=== PATIENT | female | born 1940 | race Caucasian/White ===

== ENCOUNTER 2023-06-23 14:27 | Outpatient (CLI) | payer MEDICARE | END 2023-06-23 14:28 | disposition home or self-care (01) | LOC: CSHRAD 14:27 | PROVIDERS: ATTEND Family Medicine | DX: J18.9 Pneumonia, unspecified organism (principal) | CPT/HCPCS: 71046 ==

== ENCOUNTER 2023-07-31 18:31 | Inpatient (IN) | payer MEDICARE ==
[~2023-07-31 18:31] MED LIST: Iopamidol 370 76% 100 ML VIAL ONE
[2023-07-31 19:26] LABS: Hematocrit 32.9 % (34.9-44.5); Hemoglobin 11.3 g/dL (12.0-15.5); MDiff Complete? YES; Mean Corpuscular HGB CONC 34.3 g/dL (32.0-36.0); Mean Corpuscular Hemoglobin 29.9 pg (27.0-33.0); Platelet Count 248 10x3/uL (150-450); RBC Distribution Width 13.9 % (11.5-14.5); Red Blood Cell (RBC) Count 3.78 10x6/uL (3.90-5.03); White Blood Cell (WBC) Count 5.8 10x3/uL (3.5-10.5)
[2023-07-31 19:37] LABS: ALT (SGPT) 29 U/L (8-55); AST (SGOT) 34 U/L (5-34); Albumin 4.2 g/dL (3.4-4.8); Alkaline Phosphatase 65 U/L (40-110); Anion Gap 15 mmol/L (10-20); BUN (Urea Nitrogen) 24 mg/dL (9.8-20.1); Bilirubin, Total 0.4 mg/dL (0.2-1.2); Calc. Creatinine Clearance 0 mL/min (70-130); Calcium 8.6 mg/dL (7.8-10.44); Carbon Dioxide 28 mmol/L (23-31); Chloride 92 mmol/L (98-107); Estimated GFR 50; Globulin 2.4 g/dL (2.4-3.5); Glucose 111 mg/dL (83-110); Potassium 3.7 mmol/L (3.5-5.1); Protein, Total 6.6 g/dL (5.8-8.1); Sodium 131 mmol/L (136-145)
[2023-07-31 19:44] LABS: Troponin I 0.011 ng/mL (< 0.028)
[2023-07-31 19:52] LABS: Band 6 % (5-11); Lymphocytes 16 % (21-51); Monocytes 7 % (0-10); Neutrophil 70 % (42-75); Reactive Lymphocytes 1 % (0-10)
[2023-07-31 19:54] LABS: Magnesium 1.7 mg/dL (1.6-2.6)
[2023-07-31 19:57] LABS: Burr Cells SLIGHT = 2-5 cells (100X) (0-1/hpf); Microcytosis SLIGHT = 6-15 cells (100X) (0-5/hpf); Ovalocytes SLIGHT = 2-5 cells (100X) (0-1/hpf)
[2023-07-31 19:59] LABS: Anisocytosis SLIGHT = 6-15 cells (100X) (0-5/hpf); Poikilocytosis SLIGHT = 6-15 cells (100X) (0-5/hpf)
[2023-07-31 20:01] LABS: Platelet Adequacy Comment Appears Adequate
[2023-07-31 22:01] LABS: SARS-CoV-2 NAA Rapid Test Not Detected (NotDetected)
[2023-07-31] MEDS ORDERED: Ondansetron PF 4 MG/2 ML Vial IVP PRN (22:16)
[2023-07-31] MEDS ORDERED: Ipratropium/Albuterol 3 ML NEB NEB PRN (22:16)
[2023-07-31] MEDS ORDERED: Ondansetron ODT 4 MG TAB PO PRN (22:16)
[2023-07-31] MEDS ORDERED: Acetaminophen 650 MG Suppository PR PRN (22:16)
[2023-07-31] MEDS ORDERED: predniSONE 20 MG TAB PO SCH (23:45)
[2023-08-01] VITALS: BMI 17.1
[2023-08-01] MEDS: Ipratropium/Albuterol 3 ML NEB NEB SCH ×5 (03:57→23:40)
[2023-08-01 04:05] LABS: Hematocrit 33.7 % (34.9-44.5); Hemoglobin 11.6 g/dL (12.0-15.5); Mean Corpuscular HGB CONC 34.4 g/dL (32.0-36.0); Mean Corpuscular Hemoglobin 30.1 pg (27.0-33.0); Mean Corpuscular Volume 87.3 fl (81.6-98.3); Platelet Count 257 10x3/uL (150-450); Red Blood Cell (RBC) Count 3.86 10x6/uL (3.90-5.03); White Blood Cell (WBC) Count 6.3 10x3/uL (3.5-10.5)
[2023-08-01 04:06] LABS: MDiff Complete? YES
[2023-08-01 04:14] LABS: Anion Gap 13 mmol/L (10-20); BUN (Urea Nitrogen) 20 mg/dL (9.8-20.1); Calc. Creatinine Clearance 31 mL/min (70-130); Calcium 8.4 mg/dL (7.8-10.44); Carbon Dioxide 27 mmol/L (23-31); Chloride 95 mmol/L (98-107); Estimated GFR 53; Glucose 110 mg/dL (83-110); Potassium 3.5 mmol/L (3.5-5.1); Sodium 131 mmol/L (136-145)
[2023-08-01 05:02] LABS: Band 2 % (5-11); Lymphocytes 11 % (21-51); Monocytes 5 % (0-10); Neutrophil 81 % (42-75); Reactive Lymphocytes 1 % (0-10)
[2023-08-01 05:06] LABS: Large Platelets SLIGHT (None Seen); Macrocytosis SLIGHT = 6-15 cells (100X) (0-5/hpf); Ovalocytes SLIGHT = 2-5 cells (100X) (0-1/hpf); Platelet Adequacy Comment Appears Adequate
[2023-08-01] MEDS ORDERED: Mometasone/Formoterol 200/5 60 PUFF INH SCH (06:30)
[2023-08-01] MEDS: Oseltamivir 75 MG CAP PO SCH ×2 (08:52→23:14)
[2023-08-01] MEDS: Enoxaparin 30 MG (0.3 mL) SYRINGE SC SCH (08:52)
[2023-08-01] MEDS: predniSONE 20 MG TAB PO SCH (08:53)
[2023-08-01] MEDS ORDERED: Losartan 50 MG TAB PO SCH (14:00)
[2023-08-01] MEDS ORDERED: Bumetanide 1 MG TAB PO SCH (14:00)
[2023-08-01] MEDS: Folic Acid 1 MG TAB PO SCH (16:04)
[2023-08-01] MEDS: Mometasone/Formoterol 60 PUFF AER INH SCH (19:10)
[2023-08-01] MEDS: Atorvastatin Calcium 10 MG TAB PO SCH (23:13)
[2023-08-01] MEDS: Famotidine 20 MG TAB PO SCH (23:13)
[2023-08-02 03:49] LABS: Anion Gap 15 mmol/L (10-20); BUN (Urea Nitrogen) 19 mg/dL (9.8-20.1); Calc. Creatinine Clearance 33 mL/min (70-130); Calcium 8.4 mg/dL (7.8-10.44); Carbon Dioxide 27 mmol/L (23-31); Chloride 96 mmol/L (98-107); Estimated GFR 57; Glucose 117 mg/dL (83-110); Potassium 3.3 mmol/L (3.5-5.1); Sodium 135 mmol/L (136-145)
[2023-08-02] MEDS: Ipratropium/Albuterol 3 ML NEB NEB SCH ×3 (07:15→19:25)
[2023-08-02] MEDS: Enoxaparin 30 MG (0.3 mL) SYRINGE SC SCH (08:16)
[2023-08-02] MEDS: Losartan 50 MG TAB PO SCH (08:17)
[2023-08-02] MEDS: Folic Acid 1 MG TAB PO SCH (08:17)
[2023-08-02] MEDS: Bumetanide 1 MG TAB PO SCH (08:17)
[2023-08-02] MEDS: predniSONE 20 MG TAB PO SCH (08:18)
[2023-08-02] MEDS: Oseltamivir 75 MG CAP PO SCH ×2 (08:18→23:10)
[2023-08-02] MEDS ORDERED: Potassium Chloride 20 MEQ TAB PO SCH (09:00)
[2023-08-02] MEDS ORDERED: Calcitriol 0.25 MCG CAP PO SCH (09:00)
[2023-08-02] MEDS: Mometasone/Formoterol 60 PUFF AER INH SCH ×2 (12:41→19:25)
[2023-08-02] MEDS: Polyethylene Glycol 3350 17 GM Packet PO PRN (14:31)
[2023-08-02] MEDS: Acetaminophen 325 MG TAB PO PRN (14:31)
[2023-08-02] MEDS: Ampicillin/Sulbactam 3 GM in Sodium Chloride 0.9% 100 ML IVPB SCH ×2 (18:03→23:22)
[2023-08-02] MEDS: Famotidine 20 MG TAB PO SCH (23:10)
[2023-08-02] MEDS: Atorvastatin Calcium 10 MG TAB PO SCH (23:10)
[2023-08-03] MEDS: Ipratropium/Albuterol 3 ML NEB NEB SCH ×4 (01:10→18:57)
[2023-08-03] MEDS: Ampicillin/Sulbactam 3 GM in Sodium Chloride 0.9% 100 ML IVPB SCH ×3 (06:30→18:08)
[2023-08-03] MEDS: Mometasone/Formoterol 60 PUFF AER INH SCH ×2 (06:35→19:01)
[2023-08-03] MEDS: Enoxaparin 30 MG (0.3 mL) SYRINGE SC SCH (09:39)
[2023-08-03] MEDS: Polyethylene Glycol 3350 17 GM Packet PO PRN (09:39)
[2023-08-03] MEDS: Oseltamivir 75 MG CAP PO SCH (09:40)
[2023-08-03] MEDS: predniSONE 20 MG TAB PO SCH (09:41)
[2023-08-03] MEDS: Folic Acid 1 MG TAB PO SCH (09:42)
[2023-08-03] MEDS: Bumetanide 1 MG TAB PO SCH (09:42)
[2023-08-03] MEDS: Losartan 50 MG TAB PO SCH (09:42)
[2023-08-03] MEDS: Acetaminophen 325 MG TAB PO PRN (09:43)
[2023-08-04] MEDS: Famotidine 20 MG TAB PO SCH ×2 (00:02→20:50)
[2023-08-04] MEDS: Oseltamivir 75 MG CAP PO SCH ×3 (00:02→20:50)
[2023-08-04] MEDS: Ampicillin/Sulbactam 3 GM in Sodium Chloride 0.9% 100 ML IVPB SCH ×4 (00:02→17:32)
[2023-08-04] MEDS: Atorvastatin Calcium 10 MG TAB PO SCH ×2 (00:03→20:50)
[2023-08-04] MEDS: Ipratropium/Albuterol 3 ML NEB NEB SCH ×4 (01:24→19:35)
[2023-08-04 05:16] LABS: #Monocytes 0.8 10x3/uL (0.0-1.1); #Neutrophils 9.7 10x3/uL (1.5-8.4); %Basophils 0.1 % (0.0-2.0); %Lymphocytes 6.5 % (18.0-47.0); %Monocytes 6.7 % (0.0-10.0); %Neutrophils 86.2 % (40.0-75.0); Hematocrit 31.7 % (34.9-44.5); Hemoglobin 10.8 g/dL (12.0-15.5); Mean Corpuscular HGB CONC 34.1 g/dL (32.0-36.0); Mean Corpuscular Hemoglobin 30.1 pg (27.0-33.0); Mean Corpuscular Volume 88.3 fl (81.6-98.3); Mean Platelet Volume 8.7 fl (7.4-10.4); Platelet Count 336 10x3/uL (150-450); Red Blood Cell (RBC) Count 3.59 10x6/uL (3.90-5.03); White Blood Cell (WBC) Count 11.3 10x3/uL (3.5-10.5)
[2023-08-04 05:22] LABS: Anion Gap 12 mmol/L (10-20); BUN (Urea Nitrogen) 15 mg/dL (9.8-20.1); Calc. Creatinine Clearance 37 mL/min (70-130); Calcium 8.4 mg/dL (7.8-10.44); Carbon Dioxide 29 mmol/L (23-31); Chloride 98 mmol/L (98-107); Estimated GFR 65; Glucose 117 mg/dL (83-110); Sodium 136 mmol/L (136-145)
[2023-08-04] MEDS: Mometasone/Formoterol 60 PUFF AER INH SCH ×2 (07:30→19:35)
[2023-08-04] MEDS: Enoxaparin 30 MG (0.3 mL) SYRINGE SC SCH (08:22)
[2023-08-04] MEDS: Losartan 50 MG TAB PO SCH (08:23)
[2023-08-04] MEDS: predniSONE 20 MG TAB PO SCH (08:24)
[2023-08-04] MEDS: Folic Acid 1 MG TAB PO SCH (08:24)
[2023-08-04] MEDS: Bumetanide 1 MG TAB PO SCH (08:25)
[2023-08-04] MEDS ORDERED: Potassium Chloride 20 MEQ TAB PO SCH ×2 (13:30→21:00)
[2023-08-04] MEDS ORDERED: Magnesium Sulfate/D5W 1 GM in Premix 1 BAG IVPB SCH (15:30)
[2023-08-04] MEDS: Apixaban 2.5 MG TAB PO SCH (20:50)
[2023-08-05] MEDS: Ampicillin/Sulbactam 3 GM in Sodium Chloride 0.9% 100 ML IVPB SCH ×3 (00:16→11:47)
[2023-08-05] MEDS: Ipratropium/Albuterol 3 ML NEB NEB SCH ×3 (01:30→13:30)
[2023-08-05 05:03] LABS: #Monocytes 0.9 10x3/uL (0.0-1.1); %Basophils 0.2 % (0.0-2.0); %Eosinophils 0.1 % (0.0-6.0); %Lymphocytes 9.8 % (18.0-47.0); %Monocytes 7.8 % (0.0-10.0); %Neutrophils 81.6 % (40.0-75.0); Hematocrit 30.7 % (34.9-44.5); Hemoglobin 10.5 g/dL (12.0-15.5); Mean Corpuscular HGB CONC 34.2 g/dL (32.0-36.0); Mean Corpuscular Hemoglobin 29.8 pg (27.0-33.0); Mean Corpuscular Volume 87.2 fl (81.6-98.3); Mean Platelet Volume 8.5 fl (7.4-10.4); Platelet Count 355 10x3/uL (150-450); RBC Distribution Width 14.1 % (11.5-14.5); Red Blood Cell (RBC) Count 3.52 10x6/uL (3.90-5.03)
[2023-08-05 05:15] LABS: Anion Gap 11 mmol/L (10-20); BUN (Urea Nitrogen) 15 mg/dL (9.8-20.1); Calc. Creatinine Clearance 37 mL/min (70-130); Calcium 8.4 mg/dL (7.8-10.44); Carbon Dioxide 27 mmol/L (23-31); Chloride 100 mmol/L (98-107); Estimated GFR 65; Glucose 114 mg/dL (83-110); Magnesium 2.2 mg/dL (1.6-2.6); Potassium 4.1 mmol/L (3.5-5.1); Sodium 134 mmol/L (136-145)
[2023-08-05] MEDS: Mometasone/Formoterol 60 PUFF AER INH SCH (07:05)
[2023-08-05] MEDS ORDERED: Potassium Chloride 20 MEQ TAB PO SCH (08:00)
[2023-08-05] MEDS: Folic Acid 1 MG TAB PO SCH (08:50)
[2023-08-05] MEDS: Bumetanide 1 MG TAB PO SCH (08:50)
[2023-08-05] MEDS: Losartan 50 MG TAB PO SCH (08:50)
[2023-08-05] MEDS: Apixaban 2.5 MG TAB PO SCH (08:50)
[2023-08-05] MEDS: Oseltamivir 75 MG CAP PO SCH ×2 (08:50→15:18)
[2023-08-05 12:32] VITALS: TEMP 98.4
[2023-08-05 15:14] VITALS: BP 139/97
== END 2023-08-05 15:50 | disposition home or self-care (01) | DRG 178 ==
LOC: SUATTDRO 18:31 → CSHERS 18:31 → CSHTELE 22:01 → OBSVTOIN 22:01 → CSHTELE 23:33
PROVIDERS: ADMIT Family Medicine; ATTEND Internal Medicine
DX: J69.0 Pneumonitis due to inhalation of food and vomit (principal); E87.1 Hypo-osmolality and hyponatremia; J45.901 Unspecified asthma with (acute) exacerbation; J10.1 Influenza due to other identified influenza virus with other respiratory manifestations; H40.9 Unspecified glaucoma; E03.9 Hypothyroidism, unspecified; I10 Essential (primary) hypertension; Z11.52 Encounter for screening for COVID-19; Z79.899 Other long term (current) drug therapy; E87.6 Hypokalemia; I48.91 Unspecified atrial fibrillation; E78.5 Hyperlipidemia, unspecified; K21.9 Gastro-esophageal reflux disease without esophagitis; Z79.01 Long term (current) use of anticoagulants; K59.09 Other constipation; E83.42 Hypomagnesemia
CPT/HCPCS: 36415; 71045; 71275; 74230; 80048; 80053; 83735; 83880; 84484; 85025; 85379; 93005; 93010; 93306; 94640; 94760; 94762; J0295; J1650; J3475; J3490; J7512; J7620; Q9967

== ENCOUNTER 2023-08-10 16:05 | Outpatient (CLI) | payer MEDICARE, BC | END 2023-08-10 16:06 | disposition home or self-care (01) | LOC: CSHRAD 16:05 | PROVIDERS: ATTEND Family Medicine | DX: J18.9 Pneumonia, unspecified organism (principal) | CPT/HCPCS: 71046 ==

== ENCOUNTER 2023-10-30 14:05 | Outpatient (CLI) | payer MEDICARE, BC | END 2023-10-30 14:06 | disposition home or self-care (01) | LOC: CSHCP 14:05 | PROVIDERS: ATTEND Internal Medicine | DX: J44.89 Other specified chronic obstructive pulmonary disease (principal); J45.30 Mild persistent asthma, uncomplicated | CPT/HCPCS: 94060; 94664; 94726; 94729; 94760 ==

== ENCOUNTER → 2025-02-10 | Day surgery (SDC) | payer MEDICARE | LOC: CSHULT 12:35 | PROVIDERS: ATTEND Family Medicine | PROC: 0HBT3ZX Excision of Right Breast, Percutaneous Approach, Diagnostic (ICD-10-PCS; principal; 2025-02-10) | DX: C50.811 Malignant neoplasm of overlapping sites of right female breast (principal); C50.411 Malignant neoplasm of upper-outer quadrant of right female breast | CPT/HCPCS: 19083; 19084; A4648 ×2; 88305; 88341; 88342 ==

== ENCOUNTER 2025-03-20 10:36 | Outpatient (CLI) | payer MEDICARE | END 2025-03-20 10:37 | disposition home or self-care (01) | LOC: CSHMAMMO 10:36 | PROVIDERS: ATTEND Specialist | DX: C50.911 Malignant neoplasm of unspecified site of right female breast (principal) | CPT/HCPCS: 96372; A9697 ==

== ENCOUNTER 2025-03-20 11:17 | Outpatient (CLI) | payer MEDICARE ==
[2025-03-20 12:24] LABS: #Basophils 0.03 10x3/uL (0.0-0.2); #Eosinophils 0.14 10x3/uL (0.0-0.5); #Monocytes 0.64 10x3/uL (0.0-1.1); #Neutrophils 4.59 10x3/uL (1.5-8.4); %Basophils 0.5 % (0.0-2.0); %Eosinophils 2.2 % (0.0-6.0); %Lymphocytes 14.1 % (18.0-47.0); %Monocytes 10.2 % (0.0-10.0); %Neutrophils 72.8 % (40.0-75.0); Hematocrit 35.0 % (34.9-44.5); Hemoglobin 11.5 g/dL (12.0-15.5); Mean Corpuscular Hemoglobin 31.0 pg (27.0-33.0); Mean Corpuscular Volume 94.3 fL (81.6-98.3); Platelet Count 290 10x3/uL (150-450); Red Blood Cell (RBC) Count 3.71 10x6/uL (3.90-5.03); White Blood Cell (WBC) Count 6.30 10x3/uL (3.5-10.5)
[2025-03-20 12:39] LABS: Anion Gap 10 mmol/L (10-20); BUN (Urea Nitrogen) 20 mg/dL (9.8-20.1); Calc. Creatinine Clearance 0 mL/min (70-130); Calcium 9.5 mg/dL (7.8-10.44); Carbon Dioxide 32 mmol/L (23-31); Chloride 95 mmol/L (98-107); Glucose 110 mg/dL (83-110); Potassium 3.8 mmol/L (3.5-5.1); Sodium 133 mmol/L (136-145)
== END 2025-03-20 11:18 | disposition home or self-care (01) ==
LOC: CSHLAB 11:17
PROVIDERS: ATTEND Surgery
DX: Z01.818 Encounter for other preprocedural examination (principal); C50.911 Malignant neoplasm of unspecified site of right female breast
CPT/HCPCS: 71046; 80048; 85025

== ENCOUNTER → 2025-03-28 | Day surgery (SDC) | payer MEDICARE ==
[2025-03-20 11:49] VITALS: BMI 18.6
[~2025-03-28] MED LIST changes: +Acetaminophen 500 MG TAB ONE; +Bupivacaine/Epinephrine 0.25% 30 ML VIAL ONE; +CEFAZOLIN 2 GM VIAL ONE; +Famotidine/PF 20 mg/2ml Vial ONE; +HYDROmorphone 0.5 MG/0.5 ML SYRINGE ONE; -Iopamidol 370 76% 100 ML VIAL ONE; +Ketorolac Tromethamine 30 MG (1 mL) VIAL ONE; +Lidocaine 1% PF 5 ML VIAL ONE; +Lidocaine 2% MPF 10 ML AMP (For Epidural Use) ONE; +Ondansetron PF 4 MG/2 ML Vial ONE; +PROPOFOL 40 ML ONE; +Phenylephrine 40 MG/NS 250 ML 250 ML ONE; +Rocuronium Bromide 10 MG/ML (10ML VIAL) ONE; +SUGAMMADEX SODIUM 200 MG/2 ML VIAL ONE; +hydrALAZINE 20 MG/ML VIAL ONE; +oxyCODONE 5 MG TAB ONE
== END ==
LOC: CSHSDC 12:23
PROVIDERS: ATTEND Specialist
PROC: 0HTT0ZZ Resection of Right Breast, Open Approach (ICD-10-PCS; principal; 2025-03-28)
PROC: 07B50ZZ Excision of Right Axillary Lymphatic, Open Approach (ICD-10-PCS; 2025-03-28)
PROC: 0HX5XZZ Transfer Chest Skin, External Approach (ICD-10-PCS; 2025-03-28)
DX: C50.811 Malignant neoplasm of overlapping sites of right female breast (principal); C50.411 Malignant neoplasm of upper-outer quadrant of right female breast; C77.3 Secondary and unspecified malignant neoplasm of axilla and upper limb lymph nodes; Z17.0 Estrogen receptor positive status [ER+]; Z17.21 Progesterone receptor positive status; Z17.32 Human epidermal growth factor receptor 2 negative status; Z90.49 Acquired absence of other specified parts of digestive tract; Z90.710 Acquired absence of both cervix and uterus; Z90.12 Acquired absence of left breast and nipple
CPT/HCPCS: 19303; 38525; 38900; 14301; A6258; C1713; J0360; J1100; J1171; J1885; J2704 ×2; 88307; 88309; 88342